=== PATIENT | male | born 1990 | race Caucasian/White ===

== ENCOUNTER 2017-04-07 14:07 | Emergency (ER) | payer SELFPAY ==
--- NOTE | ~2017-04-07 | ER ---
PATIENT'S NAME: LORRIE DENTON Aydin [facility] AGE: 26 Y [address] ROOM: [place] [address] LOCATION: ED ADMIT DATE: 04/07/2017 ER/Outpatient Report DISCHARGE DATE: 04/07/2017 FAMILY PHYSICIAN: PHYSICIAN, NO ATTENDING PHYSICIAN: Devon Jaquez CHIEF COMPLAINT: Chest discomfort. HISTORY OF PRESENT ILLNESS: Mr. Grier notes that he has had chest discomfort that has been ongoing for the last 48 hours and it started Wednesday in fact, which is actually 3 days ago. The symptoms have not changed since the onset. He describes it as a tightness in his chest, and he has short of breath. It has been more noticeable with any exertion. He denies any difficulties with lying down. He states he has been very tired and slept all day yesterday. He is a smoker but denies any other medical conditions. Denies any fevers, chills, nausea, vomiting, weight gain or loss, heat or cold intolerance, or any other significant symptoms at this time. No other specific complaints. No recent falls or injuries. No swelling of the extremities. PAST MEDICAL HISTORY: Documented on the record and reviewed by me. SOCIAL HISTORY: Documented on the record and reviewed by me. MEDICATIONS: Documented on the record and reviewed by me. ALLERGIES: DOCUMENTED ON THE RECORD AND REVIEWED BY ME. REVIEW OF SYSTEMS: All systems reviewed and negative except as noted in the HPI. PHYSICAL EXAMINATION: VITAL SIGNS: Blood pressure 130/64, pulse 69, respiratory rate is 20, temperature 97.8, SpO2 is 96% on room air. Pain is rated at 3/10. GENERAL: An age-appropriate male, sleeping comfortably on the exam table recumbent upon arrival, easily arousable. NEUROLOGIC: Awake and alert. GCS is 15 after waking him up. No focal deficits. No asymmetry. HEENT: Normocephalic, atraumatic. Eyes are PERRL. Oropharynx is clear. NECK: Supple. Trachea is midline. PATIENT'S NAME: CHERIE GRIER [facility] AGE: 26 Y [address] ROOM: [place] [address] LOCATION: [facility] ADMIT DATE: 04/07/2017 ER/Outpatient Report DISCHARGE DATE: 04/07/2017 FAMILY PHYSICIAN: PHYSICIAN, NO ATTENDING PHYSICIAN: Devon Jaquez CHEST: Heart is regular rate and rhythm with no murmurs. LUNGS: Clear to auscultation bilaterally with no rhonchi, wheezes, or rales. ABDOMEN: Soft, nontender, and nondistended. No rebound or guarding. BACK: Normal to inspection and palpation. No CVA tenderness. EXTREMITIES: Warm and well perfused. No other abnormalities. SKIN: Clean, dry, and intact. LABORATORY DATA AND X-RAYS: Chest x-ray, unremarkable per my review. EKG, no comparison available but sinus rhythm, rate of 60 with normal intervals and axis. There are some U- waves noted in aVF, II, and III. CBC with no abnormalities. INR is 1. D-dimer is below detectable threshold. CMS with no appreciable electrolyte abnormalities. Magnesium is 1.9, phosphorus is 2.4. Free T4 0.8, TSH is 7.790. CK-MB of 1 and troponin undetectable. Monospot is negative. IMPRESSION: 1. Chest pain, not otherwise specified. 2. Subclinical hypothyroidism. 3. Fatigue. 4. Very mild hypophosphatemia. EMERGENCY DEPARTMENT COURSE: The patient was seen and evaluated as above. Given duration of symptoms, single troponin and nonischemic, EKG exclude ACS. Dimer excludes PE. No physical findings of DVT. The patient remained otherwise asymptomatic while in the ER. I am recommending that he attempt a trial of NSAIDs as he has not done so to this point. I did exclude mono as a cause for his fatigue. He does have subclinical hypothyroidism but technically does have enough thyroid hormone. I think he would benefit from establishing care, and I have recommended followup with [facility] as they are the on-call clinic today. He stated that would not be too big of an issue for him. All questions were answered, and the patient was discharged from the emergency department in stable condition. MD ALEJO GAMBINO/edin PATIENT'S NAME: CHERIE GRIER [facility] AGE: 26 Y [address] ROOM: [place] [address] LOCATION: [facility] ADMIT DATE: 04/07/2017 ER/Outpatient Report DISCHARGE DATE: 04/07/2017 FAMILY PHYSICIAN: IMMANUEL ESCALERA ATTENDING PHYSICIAN: Devon Jaquez /[id number] d: 04/07/17 2300 t: 04/13/17 0641, OUTPATIENT REPORT
[2017-04-07 14:33] LABS: BASOPHIL % 0.6 %; EOSINOPHIL # 0.2 K/uL (0.0-0.5); EOSINOPHIL % 3.1 %; HEMATOCRIT 46.2 % (37.0-53.0); IMMATURE GRANULOCYTE % 0.1 %; LYMPHOCYTE # 2.5 K/uL (0.8-4.0); LYMPHOCYTE % 35.3 %; MCH 30.1 pg (27.0-34.0); MCHC 34.6 gm/dL (32.0-36.5); MONOCYTE # 0.6 K/uL (0.0-1.0); MONOCYTE % 8.3 %; MPV 10.4 fl (9.4-12.4); NEUTROPHIL # (ANC) 3.7 K/uL (1.4-9.0); NEUTROPHIL % 52.6 %; NRBC % 0 /100WBC (0-0.00); PLATELET COUNT 206 K/uL (150-450); RBC 5.31 M/uL (4.00-6.00); RDW-CV 12.4 % (11.9-14.6)
[2017-04-07 14:43] LABS: INR - (THERAPEUTIC) 1.08 (0.92-1.07); PROTIME 11.3 SECONDS (9.8-11.4); PTT 28 SECONDS (25-32)
[2017-04-07 14:52] LABS: ALBUMIN 4.3 gm/dL (3.5-5.0); ALK PHOS 65 IU/L (33-138); ALT 20 IU/L (12-78); ANION GAP 9.9 (10.0-19.0); AST 13 IU/L (10-40); BLOOD UREA NITROGEN 10 mg/dL (6-24); CALCIUM 8.6 mg/dL (8.5-10.5); CHLORIDE 107 mMol/L (96-110); CO2 27 mMol/L (22-32); CPK 139 IU/L (35-332); CREATININE 1.2 mg/dL (0.6-1.3); MAGNESIUM 1.9 mg/dL (1.8-2.6); POTASSIUM 3.9 mMol/L (3.7-5.1); SODIUM 140 mMol/L (135-145); TOTAL BILIRUBIN 0.3 mg/dL (0.0-1.5); TOTAL PROTEIN 7.6 g/dL (6.0-8.4)
== END 2017-04-07 15:51 | disposition disaster alternative care site (69) ==
LOC: GMED 14:07
PROVIDERS: Emergency Medicine
DX: R07.89 Other chest pain (principal); E03.9 Hypothyroidism, unspecified; R53.83 Other fatigue; E83.39 Other disorders of phosphorus metabolism; F17.210 Nicotine dependence, cigarettes, uncomplicated